=== PATIENT | male | born 1995 | race Hispanic/Latino ===

== ENCOUNTER 2024-02-17 13:17 | Emergency (ER) | payer BC, SELFPAY ==
[2024-02-17] MEDS ORDERED: ONDANSETRON 4 MG/2 ML VIAL ONE (13:35)
[2024-02-17] MEDS ORDERED: MORPHINE 4 MG/ML SYR ONE (13:36)
[2024-02-17] MEDS ORDERED: NA CHLORIDE 0.9% 1,000 ML ONE (13:36)
[2024-02-17 13:48] LABS: Absolute Basophils 0.1 K/uL (0-0.5); Absolute Eosinophils 0.1 K/uL (0-0.5); Absolute Lymphocytes (CBC) 2.2 K/uL (0.7-4.9); Absolute Monocytes 0.8 K/uL (0.1-1.3); Absolute Neutrophil 6.8 K/uL (1.8-8.0); Basophils % 0.5 % (0-1.3); Eosinophils % 0.7 % (0-4.4); Hematocrit 47.5 % (39.6-49.0); Hemoglobin 16.2 g/dL (13.6-17.9); Lymphocytes % 22.3 % (15.3-44.8); MCH 30.7 pg (27.0-35.0); MCHC 34.2 g/dL (32.0-36.0); MCV 89.9 fL (80-100); MPV 7.8 fL (7.6-11.3); Monocytes % 8.1 % (3.3-12.3); Neutrophils % 68.4 % (41.7-73.7); Nucleated Red Blood Cells % 0.1 % (0-0); Platelets 304 thou/uL (152-406); RBC Red Blood Cell Count 5.28 M/uL (4.33-5.43); Red Cell Distribution Width 13.4 % (12.1-15.2)
[2024-02-17 14:05] LABS: Bilirubin Total 1.2 mg/dL (0.2-1.0); Globulin 3.9 g/dL (2.3-3.5); Protein, Total 7.9 g/dL (6.4-8.2)
--- NOTE | 2024-02-17 14:53 | RAD REPORT ---
EXAM DESCRIPTION: CT - Abdomen Pelvis W Contrast - 02/17/2024 1:50 pm CLINICAL HISTORY: ABD PAIN COMPARISON: No comparisons TECHNIQUE: Thin cut axial CT imaging of the abdomen and pelvis was performed following intravenous a dministration of iodine contrast. Multiplanar reformats were generated and reviewed. All CT scans are performed using dose optimization technique as appropriate and may include automated exposure control or mA/KV adjustment according to patient size. FINDINGS: No suspicious findings in the lung bases. The liver shows diffuse parenchymal hypoattenuation suggesting steatosis. Spleen, adrenal glands, and pancreas show no suspicious findings. Gallbladder and biliary tree are also without suspicious findi ng. Symmetric renal function is seen with no hydronephrosis or suspicious renal mass. Interpolar posterio r cortical 1 cm fluid density cyst. No dilated bowel loops or bowel wall thickening. Appendix shows no appreciable inflammatory changes, with a small appendicolith near the tip. No free air, free fluid or inflammatory stranding. No hernia , mass or bulky lymphadenopathy. The urinary bladder is decompressed limiting evaluation. No suspicious bony findings. IMPRESSION: No acute intra-abdominal process. Incidental findings as above. Although
--- NOTE | 2024-02-17 15:10 | EDPHYS ---
Physician Documentation [facility] Name: Valentin Ocsar Age: 28 yrs Sex: Male : 1995 Arrival Date: 02/17/2024 Time: 13:17 Bed 10 Private MD: ED Physician Nura Faye HPI: 02/16 14:55 This 28 yrs old Male presents to ER via Ambulatory with complaints of kb Abdominal Pain. 14:55 Pt is a 28 year old male who presents with RLQ pain that started at 2:45 yesterday kb afternoon. Reports subjective fever last night, nausea and vomiting. . Historical: - Allergies: 13:30 No Known Allergies; as6 - PMHx: 13:30 None; as6 - PSHx: 13:30 leg; as6 - Immunization history:: Adult Immunizations up to date. - Infectious Disease History:: Denies. - Social history:: Smoking status: Patient denies any tobacco usage or history of. ROS: 14:55 Constitutional: As per HPI kb Exam: 14:55 Constitutional: This is a well developed, well nourished patient who is awake, alert, kb and in no acute distress. Head/Face: Normocephalic, atraumatic. ENT: Moist Mucous membranes Cardiovascular: Regular rate Respiratory: Respirations even and unlabored. No increased work of breathing. Talking in full sentences Skin: Warm, dry with normal turgor. Normal color. MS/ Extremity: Pulses equal, no cyanosis. Neurovascular intact. Full, normal range of motion. Neuro: Awake and alert, GCS 15, oriented to person, place, time, and situation. Moves all extremities. Normal gait. 14:55 Abdomen/GI: Inspection: abdomen appears normal, Bowel sounds: normal, Palpation: soft, in all quadrants, mild abdominal tenderness, in the right lower quadrant, Vital Signs: 13:29 BP 131 / 87; Pulse 103; Resp 16; Temp 97.2; Pulse Ox 98% ; Weight 106.59 kg; Height 5 as6 ft. 11 in. ; Pain 6/10; 14:36 BP 119 / 85; Pulse 75; Resp 18; Pulse Ox 95% ; as6 13:29 Body Mass Index 32.78 (106.59 kg, 180.34 cm) as6 13:29 Pain Scale: Adult as6 MDM: 13:25 Patient medically screened. kb 14:58 Data reviewed: vital signs, nurses notes. kb 15:09 Differential diagnosis: appendicitis, non-specific abd pain, pancreatitis, kb Ureterolithiasis. Counseling: I had a detailed discussion with the patient and/or guardian regarding the historical points, exam findings, and any diagnostic results supporting the discharge/admit diagnosis, lab results, radiology results, the need for outpatient follow up, a family practitioner, to return to the emergency department if symptoms worsen or persist or if there are any questions or concerns that arise at home. 02/16 13:31 Order name: CBC with Diff; Complete Time: 13:52 kb 02/16 13:31 Order name: CMP; Complete Time: 14:18 kb 02/16 13:31 Order name: Lipase; Complete Time: 14:18 kb 02/16 13:31 Order name: CT Abd/Pelvis - IV Contrast Only; Complete Time: 14:54 kb 02/16 13:31 Order name: IV Saline Lock; Complete Time: 13:44 kb 02/16 13:31 Order name: Labs collected and sent; Complete Time: 13:44 kb Administered Medications: 13:44 Drug: NS 0.9% IV 1000 ml IV at 1 bolus Per protocol; 1000 mL bolus Route: IV; Rate: 1 as6 bolus; Site: right antecubital; 15:23 Follow up: Response: No adverse reaction; IV Status: Completed infusion; IV Intake: as6 1000ml 13:44 Drug: Ondansetron IVP 4 mg IVP once; over 2 minutes Route: IVP; Site: right antecubital;as6 15:23 Follow up: Response: No adverse reaction as6 13:44 Drug: morphine IVP or IV 4 mg IVP once over 4 mins Route: IVP; Infused Over: 4 mins; as6 Site: right antecubital; 15:23 Follow up: Response: No adverse reaction as6 Disposition: 15:36 Co-signature as Attending Physician, Nura Faye MD I reviewed the patient's care rn provided by the Advanced Practice Provider and agree with the diagnosis and treatment plan. Disposition Summary: 02/17/24 15:10 Discharge Ordered Notes: Location: Home kb Condition: Stable kb Diagnosis - Lower abdominal pain, unspecified kb Followup: kb - With: Emergency Department - When: As needed - Reason: Worsening of condition Followup: kb - With: Private Physician - When: 2 - 3 days - Reason: Recheck today's complaints, Continuance of care, Re-evaluation by your physician Discharge Instructions: - Discharge Summary Sheet kb - Abdominal Pain, Adult, [id number] kb Forms: - Work release form kb - Medication Reconciliation Form kb - Antibiotic Education kb - Prescription Opioid Use kb - Patient Portal Instructions kb - Leadership Thank You Letter kb Prescriptions: - Zofran 4 mg Oral tablet - take 1 tablet ORAL route every 6 hours As needed; 10 tablet; Refills: 0, kb Product Selection Permitted Signatures: Dispatcher [employer] EDMS Sruthi Garces, VENEER CLIPPER HELPER-C Nura Ochoa MD MD rn Slawson, Ashby, RN RN as6 Corrections: (The following items were deleted from the chart) 13:32 13:32 Abdomen Pelvis W Con+CT.[id number].[id number] ordered. EDMS EDMS
--- NOTE | 2024-02-17 15:10 | ER ---
Nurse's Notes [facility] Name: Valentin Oscar Age: 28 yrs Sex: Male : 1995 Arrival Date: 02/17/2024 Time: 13:17 Bed 10 Private MD: Diagnosis: Lower abdominal pain, unspecified Presentation: 02/16 13:29 Chief complaint: Patient states: RLQ pain and vomiting. Coronavirus screen: At this as6 time, the client does not indicate any symptoms associated with coronavirus-19. Ebola Screen: No symptoms or risks identified at this time. Initial Sepsis Screen: Does the patient meet any 2 criteria? No. Patient's initial sepsis screen is negative. Does the patient have a suspected source of infection? No. Patient's initial sepsis screen is negative. Risk Assessment: Do you want to hurt yourself or someone else? Patient reports no desire to harm self or others. Onset of symptoms was February 16, 2024. 13:29 Acuity: BRITNEY 3 as6 13:29 Method Of Arrival: Ambulatory as6 Triage Assessment: 13:31 General: Appears in no apparent distress. Behavior is calm, cooperative. Pain: as6 Complains of pain in right lower quadrant. GI: Reports lower abdominal pain, nausea. Historical: - Allergies: 13:30 No Known Allergies; as6 - PMHx: 13:30 None; as6 - PSHx: 13:30 leg; as6 - Immunization history:: Adult Immunizations up to date. - Infectious Disease History:: Denies. - Social history:: Smoking status: Patient denies any tobacco usage or history of. Screenin:44 [facility] ED Fall Risk Assessment (Adult) History of falling in the last 3 months, as6 including since admission No falls in past 3 months (0 pts) Confusion or Disorientation No (0 pts) Intoxicated or Sedated No (0 pts) Impaired Gait No (0 pts) Mobility Assist Device Used No (0 pt) Altered Elimination No (0 pt) Score/Fall Risk Level 0 - 2 = Low Risk Oriented to surroundings, Maintained a safe environment, Educated pt \T\ family on fall prevention, incl call for assistance when getting out of bed, Assessed \T\ reinforced patient's understanding of fall precautions. Abuse screen: Denies threats or abuse. Denies injuries from another. Nutritional screening: No deficits noted. Tuberculosis screening: No symptoms or risk factors identified. Assessment: 14:36 Reassessment: Patient appears in no apparent distress at this time. Patient and/or as6 family updated on plan of care and expected duration. Pain level reassessed. Patient is alert, oriented x 3, equal unlabored respirations, skin warm/dry/pink. Vital Signs: 13:29 BP 131 / 87; Pulse 103; Resp 16; Temp 97.2; Pulse Ox 98% ; Weight 106.59 kg; Height 5 as6 ft. 11 in. ; Pain 6/10; 14:36 BP 119 / 85; Pulse 75; Resp 18; Pulse Ox 95% ; as6 13:29 Body Mass Index 32.78 (106.59 kg, 180.34 cm) as6 13:29 Pain Scale: Adult as6 ED Course: 13:24 Patient arrived in ED. mg5 13:25 Sruthi Garces FNP-C is PHCP. kb 13:25 Nura Faye MD is Attending Physician. kb 13:30 Triage completed. as6 13:31 Arm band placed on. as6 13:32 Raimundo Jj, PIERO is Primary Nurse. as6 13:44 CBC with Diff Sent. as6 13:44 CMP Sent. as6 13:44 Lipase Sent. as6 13:44 Inserted saline lock: 22 gauge in left antecubital area, using aseptic technique. Blood as6 collected. 13:45 Bed in low position. Call light in reach. Side rails up X 1. as6 13:52 CT Abd/Pelvis - IV Contrast Only In Process Unspecified. EDMS 15:23 Provided Education on: follow up. as6 15:23 No provider procedures requiring assistance completed. IV discontinued, intact, as6 bleeding controlled, No redness/swelling at site. Pressure dressing applied. Administered Medications: 13:44 Drug: NS 0.9% IV 1000 ml IV at 1 bolus Per protocol; 1000 mL bolus Route: IV; Rate: 1 as6 bolus; Site: right antecubital; 15:23 Follow up: Response: No adverse reaction; IV Status: Completed infusion; IV Intake: as6 1000ml 13:44 Drug: Ondansetron IVP 4 mg IVP once; over 2 minutes Route: IVP; Site: right antecubital;as6 15:23 Follow up: Response: No adverse reaction as6 13:44 Drug: morphine IVP or IV 4 mg IVP once over 4 mins Route: IVP; Infused Over: 4 mins; as6 Site: right antecubital; 15:23 Follow up: Response: No adverse reaction as6 Medication: 13:45 VIS not applicable for this client. as6 Intake: 15:23 IV: 1000ml; Total: 1000ml. as6 Outcome: 15:10 Discharge ordered by MD. cade 15:23 Discharged to home ambulatory, with family, as6 15:23 Condition: stable 15:23 Discharge instructions given to patient, Instructed on discharge instructions, follow up and referral plans. medication usage, Demonstrated understanding of instructions, follow-up care, medications, Prescriptions given X 1, 15:24 Patient left the ED. as6 Signatures: Dispatcher [employer] EDSruthi Nam, PORTER-C PORTER-Raimundo Montiel, RN RN as6 Anastasiya Aguirre mg5
[2024-02-17 15:32] VITALS: BP 119/85; TEMP 97.2; O2SAT 95
== END 2024-02-17 15:24 | disposition home or self-care (01) ==
LOC: ER 13:17
DX: R10.31 Right lower quadrant pain (principal)
CPT/HCPCS: 36415; 74177; 80053; 83690; 85025; 96361; 96374; 96375; 99284; J2405; J7030; Q9967